=== PATIENT | female | born 1970 | race African-American/Black ===

== ENCOUNTER 2019-11-18 08:43 | Outpatient (CLI) | payer OTHER, SELFPAY ==
--- NOTE | 2019-11-18 | EST_ITS ---
Patient Info Name: Nahomi Mccrary Age: 49 years : 1970 Gender: Female Ht: 63 in Wt: 212 lbs BSA: 2.11 m2 Technical Quality: Good Exam Date: 11/18/2019 9:07 AM Exam Location: [facility] Stress Patient Status: Outpatient Admit Date: 11/18/2019 Staff Ordering Physician: Can Samuels MD Attending Provider: Can Samuels MD Exercise Technologist: Amanda Solis RDCS Nurse: Jazmyne Horn, GANESH, ACNP-BC Exam Type: CA stress test treadmill Study Info Indications R07.9 - Chest pain, unspecified A treadmill exercise stress test was performed. Summary 1. Negative treadmill stress test for ischemia. 2. Hypertensive blood pressure response. 3. Mildly decreased exercise tolerance for age. Protocol: [facility] Stress ECG Details Stage: REST Duration (min): 6 min : 58 sec Speed (mph): 0.0 Grade (%): 0 HR (bpm): 71 SBP (mmHg): 111 DBP (mmHg): 75 METS: --- Stage: REST Duration (min): 16 min : 58 sec Speed (mph): 0.0 Grade (%): 0 HR (bpm): 81 SBP (mmHg): 111 DBP (mmHg): 75 METS: --- Stage: STAGE 1 Duration (min): 1 min : 0 sec Speed (mph): 1.7 Grade (%): 10 HR (bpm): 101 SBP (mmHg): 111 DBP (mmHg): 75 METS: --- Stage: STAGE 1 Duration (min): 2 min : 0 sec Speed (mph): 1.7 Grade (%): 10 HR (bpm): 108 SBP (mmHg): 111 DBP (mmHg): 75 METS: --- Stage: STAGE 1 Duration (min): 3 min : 0 sec Speed (mph): 1.7 Grade (%): 10 HR (bpm): 115 SBP (mmHg): 114 DBP (mmHg): 56 METS: --- Stage: STAGE 2 Duration (min): 1 min : 0 sec Speed (mph): 2.5 Grade (%): 12 HR (bpm): 127 SBP (mmHg): 114 DBP (mmHg): 56 METS: --- Stage: STAGE 2 Duration (min): 2 min : 0 sec Speed (mph): 2.5 Grade (%): 12 HR (bpm): 129 SBP (mmHg): 159 DBP (mmHg): 103 METS: --- Stage: STAGE 2 Duration (min): 3 min : 0 sec Speed (mph): 2.5 Grade (%): 12 HR (bpm): 135 SBP (mmHg): 159 DBP (mmHg): 103 METS: --- Stage: STAGE 3 Duration (min): 0 min : 47 sec Speed (mph): 3.4 Grade (%): 14 HR (bpm): 144 SBP (mmHg): 159 DBP (mmHg): 103 METS: --- Stage: RECOVERY Duration (min): 0 min : 12 sec Speed (mph): 1.5 Grade (%): 0 HR (bpm): 142 SBP (mmHg): 159 DBP (mmHg): 103 METS: --- Stage: RECOVERY Duration (min): 1 min : 12 sec Speed (mph): 0.0 Grade (%): 0 HR (bpm): 112 SBP (mmHg): 159 DBP (mmHg): 103 METS: --- Stage: RECOVERY Duration (min): 2 min : 12 sec Speed (mph): 0.0 Grade (%): 0 HR (bpm): 102 SBP (mmHg): 159 DBP (mmHg): 103 METS: --- Stage: RECOVERY Duration (min): 3 min : 12 sec Speed (mph): 0.0 Grade (%): 0 HR (bpm): 95 SBP (mmHg): 172 DBP (mmHg): 71 METS: --- Stage: RECOV
== END 2019-11-18 08:44 | disposition home or self-care (01) ==
PROVIDERS: PCP Family Medicine; Visit Provider Family Medicine
DX: R07.9 Chest pain, unspecified (principal)
CPT/HCPCS: 93017

== ENCOUNTER 2019-12-18 08:36 | Outpatient (CLI) | payer OTHER, SELFPAY ==
--- NOTE | 2019-12-18 | ECHO_ITS ---
Patient Info Name: Nahomi Mccrary Age: 49 years : 1970 Gender: Female Ht: 63 in Wt: 215 lbs BSA: 2.13 m2 HR: 73 bpm BP: 130 / 87 mmHg Heart Rhythm: Sinus Rhythm Technical Quality: Good Exam Date: 12/18/2019 9:03 AM Exam Location: [facility] Pulmonary Patient Status: Outpatient Admit Date: 12/18/2019 Staff Ordering Physician: Can Samuels MD Vending Mechanic: Avril Sullivan RDCS Attending Provider: Can Samuels MD Referring Physician: Abril STALLINGS; Exam Type: CA echo doppler color flow Study Info Indications - irregular heart beat Complete two-dimensional, color flow and Doppler transthoracic echocardiogram is performed. Summary 1. Left ventricular systolic function is normal, estimated at 60-65%. 2. The left ventricular diastolic function is normal. 3. There is mild mitral valve regurgitation. 4. There is mild tricuspid valve regurgitation. 5. No pulmonary hypertension, estimated pulmonary arterial systolic pressure is 23 mmHg. Left Ventricle Left ventricular chamber dimension is normal. Left ventricular systolic function is normal, estimated at 60-65%. There is no increased left ventricular wall thickness. Left ventricular septal wall motion is normal. The left ventricular diastolic function is normal. Global longitudinal strain is normal at -18 %. Right Ventricle Right ventricular chamber dimension is normal. Right ventricular systolic function is normal. Left Atria Left atrial chamber dimension is normal. Right Atria Right atrial chamber dimension is normal. Aortic Valve The aortic valve is trileaflet. There is no aortic valve sclerosis. There is no aortic valve stenosis. There is no aortic valve regurgitation. Pulmonic Valve The pulmonic valve is normal. There is no pulmonic valve stenosis. There is no pulmonic regurgitation. Mitral Valve The mitral valve has normal leaflets. There is no mitral valve stenosis. There is mild mitral valve regurgitation. Tricuspid Valve The tricuspid valve leaflets are normal. There is no significant tricuspid valve stenosis. There is mild tricuspid valve regurgitation. No pulmonary hypertension, estimated pulmonary arterial systolic pressure is 23 mmHg. Pericardium/Pleural The pericardium appears normal. There is no pericardial effusion. Inferior Vena Cava Normal inferior vena cava with >50% collapse upon inspiration consistent with normal right atrial pressure, 5 mmHg. Aorta The aortic root size at the sinus of Valsalva is normal. The prox ascending aorta size is normal. Left Ventricular Outflow Tract Name Value Normal LVOT 2D LVOT Diameter 2.0 cm LVOT Doppler LVOT Peak Gradient 5 mmHg LVOT Mean Gradient 3 mmHg LVOT VTI 24 cm LVOT VTI/AV VTI Ratio 0.8 LVOT Stroke Volume 74 ml LVOT CO 14.3 l/min LVOT CI 6.7 l/min/m2 Pulmonic Valve
== END 2019-12-18 08:37 | disposition home or self-care (01) ==
PROVIDERS: PCP Family Medicine; Visit Provider Family Medicine
DX: I34.0 Nonrheumatic mitral (valve) insufficiency (principal); I36.1 Nonrheumatic tricuspid (valve) insufficiency
CPT/HCPCS: 93306

== ENCOUNTER 2020-03-28 10:51 | Outpatient (CLI) | payer OTHER, SELFPAY ==
--- NOTE | ~2020-03-28 | US_ITS ---
US thyroid INDICATION: Follow-up thyroid nodule. Previous benign biopsy of right thyroid mass TECHNIQUE: Real-time sonographic images of the thyroid gland were obtained. COMPARISON: Ultrasound dated 01/12/2018 FINDINGS: The right thyroid lobe measures 6 x 3.9 x 3.3 cm. The left thyroid lobe measures 4.4 x 2 x 1.5 cm. In the right lobe there is a complex hyperechoic mass measuring 5.4 x 4.4 x 3.1 cm which is slightly increased in size compared with prior examination. In the left lobe there is an 8 x 7 x 4 mm isoechoic mass without significant change from prior examination allowing for technique. IMPRESSION: 1. Slight increased size of right thyroid mass compared with prior examination. This was previously biopsy-proven benign with pathology consistent with benign follicular nodule. Reviewed, dictated and finalized at location A. IMPRESSION: 1. Slight increased size of right thyroid mass compared with prior examination . This was previously biopsy-proven benign with pathology consistent with benig n follicular nodule.
== END 2020-03-28 10:52 | disposition home or self-care (01) ==
LOC: ANHIMG 10:57
PROVIDERS: PCP Family Medicine; Visit Provider Family Medicine
DX: E04.1 Nontoxic single thyroid nodule (principal); E07.9 Disorder of thyroid, unspecified
CPT/HCPCS: 76536

== ENCOUNTER 2020-05-26 09:43 | Outpatient (CLI) | payer OTHER, SELFPAY ==
--- NOTE | ~2020-05-26 | MM_ITS ---
EXAMINATION: MM screening [facility] w [facility] HISTORY: Screening TECHNIQUE: Craniocaudal and mediolateral oblique 3-D tomosynthesis images were obtained and synthetic 2-D images were generated. CAD analysis was submitted and interpreted. COMPARISON: Comparison to multiple prior studies sequentially, with oldest reviewed study dated 06/2014. BREAST PARENCHYMAL COMPOSITION: There are scattered areas of fibroglandular density. FINDINGS: There is no evidence of suspicious mass, calcification, or architectural distortion to sugg est malignancy in either breast. There has been no suspicious interval change. IMPRESSION: 1. No mammographic evidence of malignancy. 2. Recommend routine screening mammography in one year. BI-RADS Category 1: Negative Reviewed, dictated and finalized at location A. MINATION WORKER
== END 2020-05-26 09:44 | disposition home or self-care (01) ==
LOC: ANHIMG 09:46
PROVIDERS: PCP Family Medicine; Visit Provider Family Medicine
DX: Z12.31 Encounter for screening mammogram for malignant neoplasm of breast (principal)
CPT/HCPCS: 77063; 77067

== ENCOUNTER 2020-07-29 09:46 | Outpatient (CLI) | payer OTHER, SELFPAY ==
--- NOTE | ~2020-07-29 | CT_ITS ---
EXAMINATION: CT diagnostic chest w con DATE: 07/29/2020 10:20 INDICATION: Solitary pulmonary nodule TECHNIQUE: Transaxial computed tomographic images of the chest were obtained after the administration of 75 cc of Omnipaque 350 intravenous contrast. The dose-length product (DLP) was 575.71 mGy-cm. Ite rative reconstruction was used. COMPARISON: 11/13/2015 FINDINGS: A 12 mm nodule of the right lower lobe previously measured 9 mm. There are several addition al smaller nodules in the lower lobes which are stable compared to the prior examination. The lungs a re free of acute opacities. There is no pleural effusion or pneumothorax. Mild dependent atelectasis is present. There is asymmetric enlargement of the right thyroid lobe which measures 4.3 x 4.1 cm and exerts mass effect on the trachea and surrounding vasculature. No pathologically enlarged thoracic l ymph nodes are identified. The heart size is normal. The gallbladder is surgically absent. There is m ild enlargement of the common bile duct and central intrahepatic ducts which is likely due to post ch olecystectomy state. IMPRESSION: 1. Right lower lobe nodule with slight increase in size since the prior examination. Finding could re flect old granulomatous disease versus very low-grade neoplasm given slow rate of interval growth. 2. Additional stable pulmonary nodules, likely old granulomatous disease. 3. Continued asymmetric enlargement of the right thyroid lobe which measures up to 4.3 cm and exerts mass effect on the trachea and surrounding vasculature. Reviewed, dictated and finalized at location A. RATORY SAMPLER IMPRESSION: 1. Right lower lobe nodule with slight increase in size since the prior examina tion. Finding could reflect old granulomatous disease versus very low-grade baylee plasm given slow rate of interval growth. 2. Additional stable pulmonary nodules, likely old granulomatous disease. 3. Continued asymmetric enlargement of the right thyroid lobe which measures up to 4.3 cm and exerts mass effect on the trachea and surrounding vasculature.
[2020-07-29 10:12] LABS: Estimated Glomerular Filt Rate > 60
== END 2020-07-29 09:47 | disposition home or self-care (01) ==
PROVIDERS: PCP Family Medicine; Visit Provider Nurse Practitioner
DX: R91.1 Solitary pulmonary nodule (principal); R91.8 Other nonspecific abnormal finding of lung field
CPT/HCPCS: 71260; Q9967

== ENCOUNTER 2021-12-15 07:45 | Outpatient (CLI) | payer OTHER, SELFPAY ==
--- NOTE | ~2021-12-15 | MM_ITS ---
EXAMINATION: MM screening [facility] BI [facility] [place] HISTORY: Screening TECHNIQUE: Craniocaudal and mediolateral oblique 3-D tomosynthesis images were obtained and synthetic 2-D images were generated. CAD analysis was submitted and interpreted. COMPARISON: Comparison to multiple prior studies sequentially, with oldest reviewed study dated 06/2014. BREAST PARENCHYMAL COMPOSITION: There are scattered areas of fibroglandular density. FINDINGS: There is no evidence of suspicious mass, calcification, or architectural distortion to sugg est malignancy in either breast. There has been no suspicious interval change. IMPRESSION: 1. No mammographic evidence of malignancy. 2. Recommend routine screening mammography in one year. BI-RADS Category 1: Negative Reviewed, dictated and finalized at location A.
== END 2021-12-15 07:46 | disposition home or self-care (01) ==
PROVIDERS: PCP Family Medicine; Visit Provider Family Medicine
DX: Z12.31 Encounter for screening mammogram for malignant neoplasm of breast (principal)
CPT/HCPCS: 77063; 77067

== ENCOUNTER 2022-10-27 16:40 | Outpatient (CLI) | payer OTHER, SELFPAY ==
--- NOTE | ~2022-10-27 | US_ITS ---
EXAMINATION: US thyroid DATE: 10/27/2022 17:06 INDICATION: Nodular thyroid. TECHNIQUE: Multiple ultrasound images of the thyroid were obtained. COMPARISON: Thyroid ultrasound 03/28/2020, 01/30/18 FINDINGS: The right thyroid lobe measures 7.9 x 3.8 x 5.1 cm. The left thyroid lobe measures 4.4 x 1.4 x 1.8 c m. In the left thyroid lobe, there is a 10 mm predominantly solid, hypoechoic, wider than tall nodul e with smooth margin without echogenic foci (TI-RADS TR4), increased from 8 mm on 03/28/20. In the ri ght thyroid lobe, there is a 6.0 cm predominantly solid, isoechoic, wider than tall nodule with red h margin without echogenic foci (TR3), stable from 03/28/20 and increased from 4.1 cm on 01/30/18 when biopsy was benign. IMPRESSION: 1. Multinodular goiter. Consider thyroid ultrasound in one year. Reviewed, dictated and finalized at location E.
== END 2022-10-27 16:41 | disposition home or self-care (01) ==
LOC: ANHIMG 16:41
PROVIDERS: PCP Family Medicine; Visit Provider Nurse Practitioner Adult Health
DX: E04.2 Nontoxic multinodular goiter (principal)
CPT/HCPCS: 76536